=== PATIENT | male | born 1975 | race Caucasian/White ===

== ENCOUNTER → 2018-01-27 11:40 | Outpatient (CLI) | payer BC, SELFPAY ==
[2018-01-27 12:45] LABS: Influenza A and B by PCR Rapid Negative (Negative)
== END ==
PROVIDERS: PCP Internal Medicine; Visit Provider Physician Assistant
DX: R68.89 Other general symptoms and signs (principal)
CPT/HCPCS: 87400

== ENCOUNTER 2020-06-29 17:50 | Emergency (ER) | payer BC, SELFPAY ==
[2020-06-29 17:57] VITALS: BP 123/79; PULSE 89; RESP 16; TEMP 36.8; O2SAT 100
--- NOTE | 2020-06-29 18:40 | PC.NURSE ---
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
[2020-06-29] MEDS: LIDO 1%/SOD BICARB 8.4% (10ML) 10 ML SYRINGE INJ (19:15)
--- NOTE | 2020-06-29 19:26 | ED.WOUNDLAC ---
HPI - Wound/Laceration General Chief Complaint: Wound/Laceration Stated Complaint: RT WRIST CUT Time Seen by Provider: 06/29/20 18:06 Source: patient Mode of arrival: Ambulatory Limitations: no limitations History of Present Illness HPI narrative: Patient is a 45-year-old male who presents with laceration to the right wrist. He said he was reaching for the food beverage attendant blade when it jumped out and cut him. He is having some numbness to his right thumb. No weakness. He is right handed and tetanus is up-to-date Onset (ago): hour(s) Related Data Home Medications Medication Instructions Recorded Confirmed No Known Home Medications 01/27/18 01/27/18 Allergies Allergy/AdvReac Type Severity Reaction Status Date / Time No Known Drug Allergies Allergy Verified 01/27/18 10:05 Review of Systems Review of Systems Narrative: GENERAL: Denies chills,fever HEENT: Denies throat pain RESPIRATORY: Denies dyspnea, cough, wheezing CARDIOVASCULAR: Denies chest pain, palpitations GASTROINTESTINAL: Denies nausea, vomiting MUSCULOSKELETAL: Denies extremity pain, injury SKIN: See HPI NEUROLOGIC: Denies weakness, dizziness, headache, numbness 8 point review of systems is negative except for those stated above and HPI Patient History Medical History Hyperlipidemia Social History Smoking Status: Never smoker Smoking Status: Never smoker Exam Initial Vital Signs Initial Vital Signs: Vital Signs Temperature 98.2 F 06/29/20 17:57 Pulse Rate 89 06/29/20 17:57 Respiratory Rate 16 06/29/20 17:57 Blood Pressure 123/79 06/29/20 17:57 Pulse Oximetry 100 06/29/20 17:57 GENERAL: Well-appearing, well-nourished and in no acute distress. CARDIOVASCULAR: peripheral pulses in tact, cap refill <2 sec RESPIRATORY: No respiratory distress, speaks in full sentences without difficulty EXTREMITIES: Normal range of motion, no clubbing or edema. Neurovascularly intact NEUROLOGICAL: Cranial nerves II through XII grossly intact. Normal gait and speech. SKIN: 2 cm right wrist laceration palmar side lateral does not break the fascia adipose tissue exposed. Slight decreased sensation to right thumb but able to make an okay sign with pinky good wrist flexion and extension sensation between 1st and 2nd digit intact. Good ab and adduction of fingers Procedures Laceration Repair Laceration 1: Site: upper extremity Side (If applicable): right Size (cm): 2 Description: linear Depth: simple, single layer Local Anesthetic: lidocaine 1% and with bicarb Amount of anesthesia used (mL): 3 Pre-repair: wound explored, irrigated extensively and deep structures intact Skin layer closed with: nylon Size (cm): 4-0 Number of sutures: 2 Course Orders Ordered: Discontinued Medications Lidocaine HCl (Lidocaine 1% (Pf)) 6 ml SUBCUT NOW ONE Stop: 06/29/20 19:12 Last Admin: 06/29/20 19:15 Dose: Not Given Documented by: MINA Vital Signs Vital signs: Vital Signs - 8 hr 06/29/20 17:57 Temperature 98.2 F Pulse Rate 89 Respiratory Rate 16 Blood Pressure 123/79 Pulse Oximetry 100 Discharge Plan Departure Patient Disposition: Home Clinical Impression: Laceration of right wrist Qualifiers: Encounter type: initial encounter Qualified Code(s): S61.511A - Laceration without foreign body of right wrist, initial encounter Instructions: DI for Laceration Repair Activity Restrictions/Additional Instructions: 1. Have your suture removed in 5-7 days, you may go to walk-in clinic, return to the ER or call your primary care physician. 2. No soaking in water including dishes, bathtubs, Lakes, swimming pools etc 3. Signs of infection include, but not limited to, increased redness, increased swelling, increased pain, fever and purulent drainage, if the symptoms should arise, you may need an antibiotic and you should have a reevaluation either by your primary care provider or by the emergency department. Prescriptions: No Action No Known Home Medications RF: 0
== END 2020-06-29 19:39 | disposition home or self-care (01) ==
PROVIDERS: Emergency Provider Emergency Medicine
DX: S61.511A Laceration without foreign body of right wrist, initial encounter (principal); W26.8XXA Contact with other sharp object(s), not elsewhere classified, initial encounter
CPT/HCPCS: 12001; 99282; 99283